=== PATIENT | male | born 1940 | race Caucasian/White ===

== ENCOUNTER → 2017-09-30 07:18 | Outpatient (CLI) | payer MEDICARE, BC, SELFPAY ==
--- NOTE | 2017-09-30 07:19 | CT_ITS ---
STUDY: CT ABDOMEN AND PELVIS WITH CONTRAST REASON FOR EXAM: Male, 76 years old. Right groin pain. Prior left inguinal hernia surgical repair. RADIATION DOSAGE (If Supplied By Facility): CTDIvol = ( 9.63 ) mGy, DLP = ( 509.44 ) mGycm TECHNIQUE: Transaxial images were obtained from the dome of the diaphragm to the symphysis pubis without oral contrast. 100 ml of Isovue 300 contrast was administered. Sagittal and coronal images were reconstructed. Individualized dose optimization techniques were used for this CT. COMPARISON: No prior CT imaging available. FINDINGS: The visualized lung bases appear clear of focal pulmonary consolidation with air bronchograms or pleural effusion. The visualized portions of the heart appear within normal limits. Visualized distal esophagus shows no focal enhancing lesion. Normal liver size noted without focal enhancing lesion seen. However, right hepatic lobe inferior posterior medial round smooth margin well demarcated 1.8 cm diameter lesion is noted with Hounsfield units 17.5 compatible with a simple cyst. Left hepatic lobe medial segment anterior lateral aspect shows approximate 0.45 cm diameter round low-attenuation lesion too small to characterize but likely a cyst. No intrahepatic bile duct dilatation noted. IV contrast normally fills nondilated portal vein without filling defects seen Normal gallbladder and extrahepatic biliary system. Normal spleen. Normal pancreas. Normal bilateral adrenal glands. No right hydronephrosis or hydroureter identified. Right kidney shows right mid pole anterolateral exophytic round smooth margin well-circumscribed low-attenuation lesion approximately 2 cm diameter with central Hounsfield units 23.7 consistent with a simple cyst. However, heterogeneous right renal superior to mid pole posterior lesion is seen with central high attenuation with Hounsfield units 112 indicating enhancement and showing peripheral low attenuation with Hounsfield units -6.7 concerning for neoplasm till proven otherwise. Right renal superior pole posterior lateral rounded low-attenuation lesion is approximately 1 cm diameter with central Hounsfield units -29.2, may represent angiomyolipoma. Right renal inferior pole anteromedial round low-attenuation lesion is seen approximately 0.9 cm diameter with Hounsfield units 29.7, may represent minimally complex cyst but other etiologies are not excluded. No left hydronephrosis or hydroureter noted. Left kidney shows superior pole posterior heterogeneous mostly low attenuation lesion approximately 1.9 cm diameter with central Hounsfield units 35.5, may represent angiomyolipoma but neoplasm is not excluded. Similar predominantly low-attenuation lesion is seen in the left renal mid pole posteriorly, approximate 2.3 cm diameter with central Hounsfield units -23.6, may represent angiomyolipoma but neoplasm such as liposarcoma is not excluded. Multiple scattered left renal round low-attenuation lesions are seen, too small to characterize. No abnormality seen of the right or left renal veins. Partially collapsed stomach shows no focal enhancing lesion. Normal small intestine. Normal colon. Several diverticuli noted sigmoid and left colon without CT finding of acute diverticulitis identified. Mild metal artifact from left lower pelvic anterior lateral surgical clips noted. The appendix is visualized and appears normal. Normal abdominal aorta. Normal inferior vena cava. Normal retroperitoneum. Normal appearing moderately distended urinary bladder noted without focal enhancing lesion. However, inferior posterior midline indentation is noted in the bladder due to a markedly enlarged prostate. Prostate measures apprise 6.4 x 5.1 cm and shows no internal calcifications. Normal abdominal wall without ventral/intimal bowel herniation is seen. Severe lower thoracic and lower lumbosacral spine especially L3-4 through L5/S1 noted. No osseous lytic/blastic lesion identified. However, severe spinal stenosis is noted L4-L5 with right paracentral posterior disc protrusion/osteophyte complex with vacuum phenomenon noted impinging the dural sac. CT/Abdomen/Pelvis WITH Contrast IMPRESSION: Abnormal bilateral renal masses, cannot exclude neoplasm versus angiomyolipomas and minimally complex/simple cysts as described. Recommend MRI kidneys and MRI prostate with and without IV gadolinium for further evaluation as clinically indicated. Severe prostatomegaly as described. Please see above recommendation. Severe spinal stenosis L4-L5 right paracentral posterior disc protrusion/osteoid complex with vacuum phenomenon noted intentioned dural sac. Clinical correlation recommended. Electronically Signed: Benjamin Roque, at 16:13 EDT Tel , Service support ,
[2017-09-30 07:30] LABS: CREATININE FINGERSTICK 0.8 mg/dL (0.70-1.30); EGFR FINGERSTICK > 60.0000 mL/min (>60)
== END ==
PROVIDERS: Family Provider Internal Medicine; PCP Internal Medicine; Visit Provider Surgery
DX: R10.9 Unspecified abdominal pain (principal)
CPT/HCPCS: 74177; Q9967

== ENCOUNTER 2018-05-16 12:41 | Emergency (ER) | payer MEDICARE, BC, SELFPAY ==
[2018-05-16 12:42] VITALS: BP 186/95; PULSE 68; RESP 16; TEMP 35; O2SAT 99; BMI 25.0
--- NOTE | 2018-05-16 12:54 | CT_ITS ---
STUDY: CT BRAIN WITHOUT CONTRAST REASON FOR EXAM: Male, 77 years old. Head injury. Loss of consciousness. RADIATION DOSAGE (If Supplied By Facility): CTDIvol = ( 44.99 ) mGy, DLP = ( 779.24 ) mGycm TECHNIQUE: Transaxial CT imaging of the brain was performed without administration of intravenous contrast material. Individualized dose optimization techniques were used for this CT. COMPARISON: None. FINDINGS: Small scalp hematoma overlying the posterior left parietal bone. Normal calvarium. There is mild cerebral atrophy with widening of the extra-axial spaces and ventricular dilatation. There are areas of decreased attenuation within the white matter tracts of the supratentorial brain, consistent with microvascular disease changes. Normal basal ganglia and thalami. Normal brainstem. Normal cerebellum. There is no intracranial hemorrhage. There are no findings of an acute ischemic infarction. Atherosclerotic calcification of the vertebral arteries and cavernous portions of the internal carotid arteries bilaterally. Normal visualized paranasal sinuses. CT/Brain/Head without Contrast IMPRESSION: Chronic involutional changes of the brain. Electronically Signed: Claude Ramey MD at 13:55 EST Tel [phone], Service support ,
--- NOTE | 2018-05-16 12:54 | CT_ITS ---
STUDY: CT CERVICAL SPINE WITHOUT CONTRAST REASON FOR EXAM: Male, 77 years old. Add injury. Loss of consciousness. RADIATION DOSAGE (If Supplied By Facility): CTDIvol = ( 26.89 ) mGy, DLP = ( 619.50 ) mGycm TECHNIQUE: High resolution transaxial imaging was performed without contrast material. Sagittal and coronal images were reconstructed. Individualized dose optimization techniques were used for this CT. COMPARISON: None FINDINGS: Normal craniovertebral junction. There are degenerative changes of the anterior atlantoaxial articulation. Normal odontoid process. There is straightening of the normal cervical lordosis. Cystic changes at the base of the dens. Normal vertebral bodies and posterior osseous elements. C2-3: Facet joint osteoarthritis and hypertrophy on the left side. Uncovertebral arthrosis. No evidence of stenosis. C3-4: Moderate degree of disc space narrowing. Uncovertebral arthrosis. Spondylosis. No significant stenosis is seen. C4-5: Moderate degree about the space narrowing. Subchondral sclerosis. Spondylosis. Moderate degree of right neural foraminal stenosis due to right posterior spondylosis. Facet joint osteoarthritis and hypertrophy. C5-6: Marked in the degree of disc space narrowing. Uncovertebral arthrosis. Facet joint osteoarthritis. Moderate degree of bilateral neural foraminal stenosis worse on the left side. C6-7: Marked degree of disc space narrowing. Spondylosis. Moderate degree of bilateral neural foraminal stenosis. Normal visualized soft tissue structures. CT/Spine Cervical without Contras IMPRESSION: Multilevel degenerative changes, as described above. Electronically Signed: Claude Ramey MD at 13:57 EST Tel [phone], Service support ,
[2018-05-16 12:59] VITALS: O2SAT 98
--- NOTE | 2018-05-16 14:11 | ED.VISSUMM ---
- ER Visit Summary Date of Service: 05/16/18 Chief Complaint: Head injury History of Present Illness: The patient is a [address] Waterman. Reports that yesterday he was out cutting down a tree and a branch came down and hit him on the top of the head. He does not really remember falling to the ground or walking to the shed. However, he remembers everything since that time. He denies a headache at this time. Reports he has neck pains for 10 severity. Is much worse with turning his head to either side. No other injuries. No shoulder, wrist, or hip pain. He is not on blood thinners. Physical Examination: Vitals: Stable. Afebrile. Neck: No vertebral tenderness. Moderate pain with rotation of his head bilaterally. No paraspinous muscular tenderness to palpation. Back: No vertebral tenderness. General: A&O x 3. NAD. Cardiovascular exam: Regular rate and rhythm, no murmur, rub or gallop. Respiratory exam: Chest nontender. No crepitus. Clear to auscultation bilaterally. No wheezes or stridor. Abdominal exam: Soft, nontender, nondistended, normal bowel sounds. No pain in RUQ or LUQ specifically. No peritoneal signs. Extremity: Atraumatic. No pain with range of motion. Test Results: CT C-spine shows degenerative changes. CT brain shows chronic changes. Emergency Department Course and Treatment: Patient refused pain medications. He is resting comfortably. Treatment Plan: Patient be discharged instructed follow-up Dr. Waterman in 1 week for another exam. Return to the emergency department for any worsening symptoms. Disposition: To home in improved and stable condition. Impression: 1. Concussion. 2. Cervical strain. This note was generated with [employer] software. It may contain incorrect words, spelling, and punctuation that were not noted in review of the chart prior to signing ED Disposition - Plan for ED Patient: Disposition: Home or Assisted Living Chief Complaint: Head Injury Instructions: ED Concussion Referrals: Ino Waterman MD [Primary Care Provider] - 1 Week
[2018-05-16 14:36] VITALS: BP 148/72; PULSE 83; RESP 16; O2SAT 98
== END 2018-05-16 14:37 | disposition home or self-care (01) ==
LOC: ED 13:08
PROVIDERS: Emergency Provider Emergency Medicine; Family Provider Internal Medicine; PCP Internal Medicine
DX: S06.0X9A Concussion with loss of consciousness of unspecified duration, initial encounter (principal); S16.1XXA Strain of muscle, fascia and tendon at neck level, initial encounter; W20.8XXA Other cause of strike by thrown, projected or falling object, initial encounter; Y93.H2 Activity, gardening and landscaping; Y92.9 Unspecified place or not applicable; Y99.9 Unspecified external cause status; I10 Essential (primary) hypertension; N40.0 Benign prostatic hyperplasia without lower urinary tract symptoms; Z79.899 Other long term (current) drug therapy
CPT/HCPCS: 70450; 72125; 99282

== ENCOUNTER 2019-01-22 20:42 | Observation (INO) | payer MEDICARE, BC, SELFPAY ==
[2019-01-22 20:43] VITALS: BP 163/95; PULSE 84; RESP 14; TEMP 36.6; O2SAT 97; BMI 24.3
--- NOTE | 2019-01-22 21:17 | EKG12_ITS ---
Test Reason : CP ADMIT Blood Pressure : / mmHG Vent. Rate : 065 BPM Atrial Rate : 065 BPM P-R Int : 190 ms QRS Dur : 106 ms QT Int : 414 ms P-R-T Axes : 064 014 044 degrees QTc Int : 430 ms Normal sinus rhythm Normal ECG When compared with ECG of 22-SEP-2015 15:56, No significant change was found Confirmed by BOY HULL, YIFAN ([id number]), videotape editor CHLOE COLLINS ([id number]) on 01/26/2019 9:51:27 AM Referred By: DR WEST Confirmed By:JOSSELINE BRUNSON MD
[2019-01-22 21:18] VITALS: O2SAT 96
--- NOTE | 2019-01-22 21:27 | RAD_ITS ---
STUDY: X-RAY CHEST REASON FOR EXAM: Male, 78 years old. Chest tightness and dizziness. TECHNIQUE: Single AP portable view of the chest. COMPARISON: September 22, 2015. FINDINGS: There are monitoring devices. The lungs are clear and expanded. There is no demonstrated pleural abnormality. Normal size heart. Normal mediastinum and susana. Normal visualized pulmonary arteries. There is atherosclerotic tortuosity of the aortic arch. There are diffuse degenerative changes of the visualized thoracic spine. Normal visualized ribs, clavicles, and shoulders. There is no demonstrated abnormality of the visualized soft tissue structures of the upper abdomen. RAD/Chest 1 View (Portable) IMPRESSION: Degenerative changes, as described above. No demonstrated acute cardiopulmonary process. Electronically Signed: Dominik Matos MD at 21:57 EDT , Service support ,
[2019-01-22 21:32] LABS: Absolute Lymphocyte Count 1.64 X10^3/uL (0.83-4.51); Absolute Neutrophil Count 2.5 X10^3/uL (2.0-7.7); Basophil# 0.03 X10^3/uL; Basophil% 0.6 % (0-1); Eosinophil# 0.17 X10^3/uL; Eosinophils% 3.5 % (0-5); Hematocrit 41.9 % (40-54); Hemoglobin 14.2 g/dL (13.0-16.5); Lymphocyte # 1.64 X10^3/ul (4.0); Lymphocyte % 33.8 % (19-41); Mean Corp Hgb Conc 33.9 g/dL (32-36); Mean Corpuscular Hgb 32.5 pg (27.0-32.0); Mean Corpuscular Volume 95.9 fL (80-94); Monocyte# 0.53 X10^3/uL; Monocyte% 10.9 % (0-10); NRBC Flagged by Analyzer 0 % (0-5); Neutrophil # 2.46 X10^3/uL (2.7-7.7); Neutrophil % 50.8 % (47-70); Platelet Count 170 K/mm3 (150-450); RBC Distribution Width CV 12.4 % (11.6-14.6); RBC Distribution Width SD 44.1 fl (35.1-43.9); Red Blood Count 4.37 M/mm3 (4.6-6.2); White Blood Count 4.9 K/mm3 (4.4-11.0)
[2019-01-22 21:46] LABS: Anion Gap 4 (5-15); BUN 12 mg/dL (7-18); Calcium,Total 9.2 mg/dL (8.5-10.1); Chloride 107 mmol/L (98-107); EST Glomerular Filtration Rate 62 mL/min (>60); Est Glom Filt Rate - Afr Amer 75 mL/min (>60); Estimated Creatinine Clearance 49.08 ml/min; Glucose 122 mg/dL (74-106); Potassium 3.6 mmol/L (3.5-5.1); Sodium Level 140 mmol/L (136-145)
--- NOTE | 2019-01-22 22:31 | ED.VISSUMM ---
- ER Visit Summary Date of Service: 01/22/19 Chief Complaint: Chest pain History of Present Illness: The patient is a 78 M who presents with chest pain. This began about 4 hours before presentation. He describes it as pressure-like. It is mild at 1 out of 10. It was 3 out of 10 at its worst. He also states that he felt flushed. He had similar symptoms last night which lasted about 3 hours. No history of prior similar symptoms. Of coronary disease but he does have hypertension and hyperlipidemia. Physical Examination: Blood pressure 163/95 vitals otherwise normal Moist mucous membranes Heart regular rate and rhythm Lungs clear Abdomen soft Extremities nontender without edema, symmetric palpable radial pulses Alert Test Results: EKG shows normal sinus rhythm at a rate of 68. CBC BMP troponin all normal, troponin negative. Chest x-ray shows no acute process. Emergency Department Course and Treatment: Patient was given aspirin. His MARICEL risk score is 1 but his heart score is 4. Therefore I did recommend observation for serial enzymes and stress testing. Patient discussed with the hospitalist and will be admitted. Treatment Plan: [] Disposition: Admit Impression: Chest pain This note was generated with [employer] dictation software. It may contain incorrect words, spelling, and punctuation that were not noted in review of the chart prior to signing ED Disposition - Plan for ED Patient: Referrals: Ino Waterman MD [Primary Care Provider] -
[2019-01-22 22:34] VITALS: BP 149/87; PULSE 74; RESP 18; O2SAT 96
[2019-01-22] MEDS: Aspirin 81 MG TAB.CHEW 324 MG PO (22:36)
[2019-01-22 23:40] VITALS: BMI 24.6
[2019-01-22 23:45] VITALS: BP 148/78; PULSE 61; RESP 16; TEMP 36.8; O2SAT 98
[2019-01-22 23:54] VITALS: BMI 24.7
--- NOTE | 2019-01-22 23:56 | PCM.HP.STD ---
Problem List (1) Chest pain Status: Acute (2) Hyperlipidemia Status: Acute (3) BPH (benign prostatic hyperplasia) Status: Acute (4) Hypertension Status: Chronic History of Present Illness Date of Admission: 01/22/19 Chief Complaint: Chest pain The patient is a 78 year old M with PMH as below who presents to the hospital with chest pain that started 4 hours ago. Is not exertional he had a similar chest pain the night before that lasted for about 3 hours. He has had a stress test in the past that was unremarkable. He denies any significant radiation of the pain, and is not associate with shortness of breath, palpitations, lightheadedness, or dizziness. He did get flushed at one point but denies any diaphoresis. In the ER vital signs were normal and his EKG was unremarkable his initial troponin was normal. His heart score was a 4 and his MARICEL score was 1. Past Medical History Past Medical History (Chronic Problems): Chronic Problems (Last Reviewed 09/27/17 @ 09:49 by Apolinar Gandhi MD) Hypertension (Chronic) Medical History: Medical History (Last Reviewed 09/27/17 @ 09:49 by Apolinar Gandhi MD) High cholesterol E78.00 Right groin pain R10.31 Hypertension I10 Allergies No Known Allergies Allergy (Verified 01/22/19 20:45) Home Medications: Ambulatory Orders Medication Instructions Recorded Finasteride [Proscar] 5 mg PO QHS 09/22/15 Lisinopril [Zestril] 40 mg PO DAILY 09/22/15 atorvastatin 20 mg tablet 30 mg PO QHS tab 09/27/17 Doxazosin Mesylate 1 mg PO QHS 05/16/18 Multivitamin [One-Daily 1 ea PO DAILY 01/23/19 Multi-Vitamin] Surgical History: Surgical History (Last Reviewed 09/27/17 @ 09:49 by Apolinar Gandhi MD) History of left inguinal hernia repair Z98.890, Z87.19 history left foot surgery Smoking Status: Never smoker Alcohol: None Drugs: None Review of Systems Constitutional: Denies: Chills, Fever, Weight Change HEENT: Denies: Head Aches, Sinus Congestion, Sinus Drainage Cardiovascular: Reports: Chest Pain. Denies: Palpitations Respiratory: Denies: Cough, Shortness of breath at rest, Sputum production Gastrointestinal: Denies: Abdominal Pain, Nausea, Vomiting Genitourinary: Denies: Dysuria Musculoskeletal: Denies: Joint Pain, Joint Tenderness Skin: Denies: Rash, Wounds Neurological: Denies: Numbness, Tingling, Focal weakness Psychiatric: Denies: Anxiety, Depression Hematologic/ Lymphatic: Denies: Easy Bruising, Easy Bleeding VTE Information - Inpt Only VTE Present on Admission: No Patient Problems: Active and Suspected Problems (Last Reviewed 09/27/17 @ 09:49 by Apolinar Gandhi MD) Chest pain (Acute) Hyperlipidemia (Acute) BPH (benign prostatic hyperplasia) (Acute) - Physical Exam General: Alert, Oriented x3, Cooperative, No apparent distress HEENT: Atraumatic, PERRLA, EOMI, Normocephalic Neck: Supple, No JVD Lungs: Clear to auscultation, Normal air movement, No rhonchi, No wheeze, No rales Cardiovascular: Regular rate, Regular Rhythm, Normal S1, Normal S2, No murmurs Abdomen: Soft, Non Tender, Non-Distended, No Hepato-splenomegaly Extremities: No edema, Capillary Refill Less than 3 Seconds Skin: No rashes, No breakdown Neurological: Neuro grossly intact, Sensory exam intact to light touch and pain Psych/Mental Status: Normal Affect, Appropriate Vital Signs Temp Pulse Resp BP Pulse Ox 98.2 F 61 16 148/78 H 98 01/22/19 23:45 01/22/19 23:45 01/22/19 23:45 01/22/19 23:45 01/22/19 23:45 Oxygen Flow Rate (L/min) 2 Oxygen Delivery Method Room Air Weight: 162 lb 11.218 oz Body Mass Index (BMI) 24.6 Laboratory Tests Past 24 Hrs 01/22/19 01/22/19 21:10 21:10 WBC 4.9 RBC 4.37 L Hgb 14.2 Hct 41.9 MCV 95.9 H MCH 32.5 H MCHC 33.9 RDW Std Deviation 44.1 H RDW Coeff of Kelechi 12.4 Plt Count 170 MPV 10.0 Immature Gran % (Auto) 0.400 Neut % (Auto) 50.8 Lymph % (Auto) 33.8 [place] % (Auto) 10.9 H Eos % (Auto) 3.5 Baso % (Auto) 0.6 Absolute Neuts (auto) 2.5 Absolute Lymphs (auto) 1.64 Absolute Nucleated RBC 0.00 Nucleated RBC % 0 Sodium 140 Potassium 3.6 Chloride 107 Carbon Dioxide 29.0 Anion Gap 4 L BUN 12 Creatinine 1.20 Estim Creat Clear Calc 49.08 Est GFR (MDRD) Af Amer 75 Est GFR (MDRD) Non-Af 62 BUN/Creatinine Ratio 10.0 Glucose 122 H Calcium 9.2 Troponin I < 0.015 Assessment/Plan All Active Problems (Last Reviewed 09/27/17 @ 09:49 by Apolinar Gandhi MD) Chest pain (Acute) Hyperlipidemia (Acute) BPH (benign prostatic hyperplasia) (Acute) 1. Chest pain/HTN/HLD -Initial troponin is normal, will obtain serial troponins -EKG is unremarkable -Exercise stress in the morning -Blood pressures in the 140s, will continue with lisinopril -Continue with Lipitor 20 2. BPH -Stable -Continue with Proscar and doxazosin DVT: Heparin
--- NOTE | 2019-01-23 | EKG12_ITS ---
Test Reason : CP Blood Pressure : / mmHG Vent. Rate : 068 BPM Atrial Rate : 068 BPM P-R Int : 180 ms QRS Dur : 120 ms QT Int : 406 ms P-R-T Axes : 058 039 052 degrees QTc Int : 431 ms Normal sinus rhythm Non-specific intra-ventricular conduction delay Borderline ECG Confirmed by JARAD HULL, HARSHAD ([id number]), purchase request editor CHLOE COLLINS ([id number]) on 01/24/2019 1:42:30 PM Referred By: SONALI/ANASTASIA Confirmed By:HARSHAD ABRAHAM MD
[2019-01-23 00:19] VITALS: PULSE 61
[2019-01-23 03:52] VITALS: PULSE 56
[2019-01-23 05:35] VITALS: BP 158/89; PULSE 63; RESP 18; TEMP 36.4; O2SAT 99
[2019-01-23] MEDS: Lisinopril 40 MG Tablet PO (05:35)
[2019-01-23 08:52] VITALS: PULSE 70
[2019-01-23 12:00] VITALS: PULSE 80
[2019-01-23 14:00] VITALS: BP 164/88; PULSE 68; RESP 16; TEMP 36.9; O2SAT 97
--- NOTE | 2019-01-23 14:23 | STRESSREP ---
Stress Test Report Date: January 23, 2019 Procedure: Exercise tolerance test/imaging study Indications: Pain Consent: Per the patient Procedure: The patient exercised on a Estuardo protocol for 9 minutes achieving a peak heart rate of 134 bpm (94 % predicted maximal heart rate) with a peak blood pressure 200/80 mmHg and a peak MET capacity of 10.1 METs. The baseline ECG demonstrated normal sinus rhythm. The peak exercise ECG demonstrated sinus tachycardia with no significant ST-T changes. EKG during recovery revealed no significant ischemic changes [There were no cardiac dysrhythmias pretest, during exercise, or recovery]. The functional capacity was considered above average for age. There was [no complaint of chest discomfort during exercise or recovery]. The examination was discontinued secondary to dyspnea. Impression: 1. Technically adequate (percent predicted maximal heart rate greater than 85%) exercise tolerance test 2. Stress test is negative for exercise-induced EKG changes of ischemia 3. The test test is negative for exercise-induced chest pain 4. Functional capacity is excellent for age 5. Nuclear images pending Myocardial perfusion imaging study: Technique: The patient was injected with 11.5 mCi of technetium 99m Cardiolite and subsequently rest SPECT Cardiolite nuclear imaging was obtained in the horizontal long, vertical long, and short axis views. The patient exercised on a Estuardo protocol. Please see above for details. The patient was injected with 33.1 mCi of technetium 99m Cardiolite and subsequently stress SPECT Cardiolite nuclear imaging was obtained in the horizontal long, vertical long, and short axis views. A gated Cardiolite study at peak stress was obtained. Interpretation: Rest and stress SPECT Cardiolite nuclear imaging status post realignment, normalization, and attenuation correction, demonstrates normal myocardial radioisotope uptake. The gated Cardiolite study demonstrates no significant regional wall motion abnormalities. The reported LVEF is 62 %. Impression: 1. There is no evidence of significant ischemia or infarction. 2. The gated Cardiolite study reports an LVEF of 62 %. This note was generated with [employer] software. It may contain incorrect words, spelling, and punctuation that were not noted in checking the note before signing.
--- NOTE | 2019-01-23 15:07 | DCINST_ITS ---
- Discharge Diagnoses Current Active Problems: Current Active and Chronic Problems (Last Reviewed 09/27/17 @ 09:49 by Apolinar Gandhi MD) Chest pain (Acute) Hyperlipidemia (Acute) BPH (benign prostatic hyperplasia) (Acute) Hypertension (Chronic) Reason(s) for Visit for Discharge Instructions: Chest pain You will use the following diet at home:: Cardiac Your food should be the consistency of: Regular Your liquids should be the consistency of: Regular/Thin Discharge Activity: Return to Normal Activity Additional Instructions: Continue to take all your medicines as prescribed. Follow-up with your primary care doctor within 1 to 2 weeks. Allergies/Adverse Reactions: Allergies No Known Allergies Allergy (Verified 01/22/19 20:45) Medications to take at Discharge Finasteride [Proscar] 5 mg PO QHS 09/22/15 Lisinopril [Zestril] 40 mg PO DAILY 09/22/15 atorvastatin 20 mg tablet 30 mg PO QHS tab 09/27/17 Doxazosin Mesylate 1 mg PO QHS 05/16/18 Multivitamin [One-Daily Multi-Vitamin] 1 ea PO DAILY 01/23/19 Primary Care Physician: Ino Waterman MD [Primary Care Provider] - Please follow up with your Primary Care Physician in: within 1-2 weeks Test Results: Test results from this visit will be discussed in further detail at your follow- up appointment, if applicable. Proposed Discharge Date: 01/23/19
--- NOTE | 2019-01-23 15:09 | PCM.DC.SUM ---
Discharge Date and Diagnosis Date of Admission: 01/22/19 Date of Discharge: 01/23/19 - Primary Discharge Diagnosis Active and Suspected Problems (Last Reviewed 09/27/17 @ 09:49 by Apolinar Gandhi MD) Chest pain (Acute) - Secondary Discharge Diagnosis Chronic Problems (Last Reviewed 09/27/17 @ 09:49 by Apolinar Gandhi MD) Hypertension (Chronic) Hospital Course and Treatment Imaging Results: Clinical Impression(s) from Imaging Studies Chest X-Ray 01/22/19 21:27 IMPRESSION: Degenerative changes, as described above. No demonstrated acute cardiopulmonary process. Electronically Signed: Dominik Matos MD at 21:57 EDT , Service support , None Operations: None Procedures: Stress test - negative Summary of Care Provided: The patient is a 78 year old M with past medical history of hypertension who presented to the ED with chest pain that started 4 hours prior. It was not associated with shortness of breath, palpitation or lightheadedness or dizziness. His vital signs were stable. EKG was unremarkable. Troponins were negative. He was admitted to the telemetry bed with no events. Patient underwent a stress test that was negative. Blood pressure was slightly elevated during the hospital stay. Repeat BP check showed improvement. He was asked to monitor his blood pressures at home and follow-up with his primary care doctor. Subjective: On the day of discharge, patient was seen and examined. Denied any new complaints. He felt improved. - Physical Exam General: Alert, Oriented x3, Cooperative, No apparent distress HEENT: Atraumatic, PERRLA, EOMI, Normocephalic Oral: Moist Mucosa Neck: Supple Lungs: Clear to auscultation, Normal air movement Cardiovascular: Regular rate, Regular Rhythm, Normal S1, Normal S2, No murmurs Abdomen: Bowel Sounds Present, Soft, Non Tender, Non-Distended, No Hepato-splenomegaly Extremities: No edema Skin: No rashes, No breakdown Musculoskeletal: No Tenderness to Palpation of Joints or Extremities Lymphatic: No Cervical, Supraclavicular, or Inguinal Adenopathy Neurological: Cranial nerves II-XII grossly intact, Neuro grossly intact Psych/Mental Status: Normal Affect, Appropriate Vital Signs Temp Pulse Resp BP Pulse Ox 98.4 F 68 16 164/88 H 97 01/23/19 14:00 01/23/19 14:00 01/23/19 14:00 01/23/19 14:00 01/23/19 14:00 Oxygen Flow Rate (L/min) 2 Oxygen Delivery Method Room Air Weight: 73.8 kg Body Mass Index (BMI) 24.6 Intake and Output for Last 24 Hours 01/21/19 01/22/19 01/23/19 23:59 23:59 23:59 Intake Total 600 / 600 Balance 600 / 600 Laboratory Tests Past 24 Hrs 01/22/19 01/22/19 01/23/19 21:10 21:10 00:48 WBC 4.9 RBC 4.37 L Hgb 14.2 Hct 41.9 MCV 95.9 H MCH 32.5 H MCHC 33.9 RDW Std Deviation 44.1 H RDW Coeff of Kelechi 12.4 Plt Count 170 MPV 10.0 Immature Gran % (Auto) 0.400 Neut % (Auto) 50.8 Lymph % (Auto) 33.8 [place] % (Auto) 10.9 H Eos % (Auto) 3.5 Baso % (Auto) 0.6 Absolute Neuts (auto) 2.5 Absolute Lymphs (auto) 1.64 Absolute Nucleated RBC 0.00 Nucleated RBC % 0 Sodium 140 Potassium 3.6 Chloride 107 Carbon Dioxide 29.0 Anion Gap 4 L BUN 12 Creatinine 1.20 Estim Creat Clear Calc 49.08 Est GFR (MDRD) Af Amer 75 Est GFR (MDRD) Non-Af 62 BUN/Creatinine Ratio 10.0 Glucose 122 H Calcium 9.2 Troponin I < 0.015 < 0.015 01/23/19 03:14 WBC RBC Hgb Hct MCV MCH MCHC RDW Std Deviation RDW Coeff of Kelechi Plt Count MPV Immature Gran % (Auto) Neut % (Auto) Lymph % (Auto) [place] % (Auto) Eos % (Auto) Baso % (Auto) Absolute Neuts (auto) Absolute Lymphs (auto) Absolute Nucleated RBC Nucleated RBC % Sodium Potassium Chloride Carbon Dioxide Anion Gap BUN Creatinine Estim Creat Clear Calc Est GFR (MDRD) Af Amer Est GFR (MDRD) Non-Af BUN/Creatinine Ratio Glucose Calcium Troponin I < 0.015 Discharge Diet: Low fat/ Low Cholesterol, 2000 mg Sodium Diet Discharge Activity: Return to Normal Activity Home Medications: Medications to take at Discharge Finasteride [Proscar] 5 mg PO QHS 09/22/15 Lisinopril [Zestril] 40 mg PO DAILY 09/22/15 atorvastatin 20 mg tablet 30 mg PO QHS tab 09/27/17 Doxazosin Mesylate 1 mg PO QHS 05/16/18 Multivitamin [One-Daily Multi-Vitamin] 1 ea PO DAILY 01/23/19 Primary Care Physician: Ino Waterman MD [Primary Care Provider] - Please follow up with your Primary Care Physician in: within 1-2 weeks Disposition: Home Minutes spent on discharge:: 40 Patient Condition:: Stable Medical Necessity - Tobacco Use Smoking Status: Former smoker Tobacco Use: Non-smoker Meaningful Use Info Meaningful Use Diagnoses (Choose all that apply): None applicable Code Visit OBSV E&M: 80395 Observation care discharge
== END 2019-01-23 15:05 | disposition home or self-care (01) ==
LOC: ED 22:20 → PCU 01-23 03:38
PROVIDERS: Admitting Provider Family Medicine; Emergency Provider Emergency Medicine; Family Provider Internal Medicine; PCP Internal Medicine; Visit Provider Internal Medicine
DX: R07.89 Other chest pain (principal); I10 Essential (primary) hypertension; E78.5 Hyperlipidemia, unspecified; N40.0 Benign prostatic hyperplasia without lower urinary tract symptoms; Z79.899 Other long term (current) drug therapy
CPT/HCPCS: 36415; 71045; 78452; 80048; 84484; 85025; 93005; 93017; 99218; 99285; A9500; A4216; G0378